=== PATIENT | female | born 1945 | race Caucasian/White ===

== ENCOUNTER 2021-03-14 23:59 | Observation (INO) | payer BC, MEDICARE ==
[2021-03-15] MEDS ORDERED: SODIUM CHLORIDE 0.9% 1,000 ML IV STA (00:12)
[2021-03-15] MEDS ORDERED: LORazepam 2 MG/ML INJ IV STA (00:20)
--- NOTE | 2021-03-15 00:24 | ED ---
Back Pain HPI - General Chief Complaint: Back Pain/Injury Stated Complaint: Back pain Time Seen by Provider: 03/15/21 00:04 Source: patient, EMS, RN notes reviewed, old records reviewed Limitations: physical limitation - History of Present Illness Initial Comments: This is a 75-year-old female to the emergency room today. Patient presents today for evaluation of severe back pain with radiation around her front. Patient has no neurological complaints no loss of bowel or bladder. No trauma noted. No fevers noted. This pain is severe and occurred after lifting a box 2 days ago MD Complaint: back pain, back injury -: days(s) Similar Symptoms Previously: Yes Place: home Radiation: none Severity: severe Severity scale (1-10): 10 Quality: burning, sharp Consistency: intermittent Improves With: none Worsens With: movement, walking Context: while lifting, turning/twisting, bending Associated Symptoms: denies other symptoms - Related Data Previous Rx's Medication Instructions Recorded Aspirin 325 mg PO DAILY PRN #5 tab 03/17/21 Famotidine [Pepcid] 40 mg PO DAILY #7 tab 03/17/21 Lidocaine 5% Patch [Lidoderm 5% 1 patch TOPICAL DAILY patch 03/17/21 Patch] amLODIPine [Norvasc] 5 mg PO DAILY #30 tab 03/17/21 tiZANidine [Zanaflex] 2 mg PO BID #60 tab 03/17/21 Allergies Allergy/AdvReac Type Severity Reaction Status Date / Time No Known Allergies Allergy Verified 03/15/21 07:33 Review of Systems ROS Statement: Those systems with pertinent positive or pertinent negative responses have been documented in the HPI. ROS Other: All systems not noted in ROS Statement are negative. Past Medical History Past Medical History: Osteoarthritis (OA) History of Any Multi-Drug Resistant Organisms: None Reported Past Surgical History: Orthopedic Surgery, Tubal Ligation Additional Past Surgical History / Comment(s): wrist Past Psychological History: No Psychological Hx Reported Smoking Status: Never smoker Past Alcohol Use History: None Reported Past Drug Use History: None Reported - Past Family History Mother Family Medical History: Cancer Brother(s) Family Medical History: Cancer Father Family Medical History: CVA/TIA General Exam Limitations: physical limitation General appearance: alert, in no apparent distress, anxious Head exam: Present: atraumatic, normocephalic, normal inspection Eye exam: Present: normal appearance, PERRL, EOMI. Absent: scleral icterus, conjunctival injection, periorbital swelling ENT exam: Present: normal exam, mucous membranes moist Neck exam: Present: normal inspection. Absent: tenderness, meningismus, lymphadenopathy Respiratory exam: Present: normal lung sounds bilaterally. Absent: respiratory distress, wheezes, rales, rhonchi, stridor Cardiovascular Exam: Present: regular rate, normal rhythm, normal heart sounds. Absent: systolic murmur, diastolic murmur, rubs, gallop, clicks GI/Abdominal exam: Present: soft, normal bowel sounds. Absent: distended, tenderness, guarding, rebound, rigid Extremities exam: Present: normal inspection, full ROM, normal capillary refill. Absent: tenderness, pedal edema, joint swelling, calf tenderness Back exam: Present: normal inspection Neurological exam: Present: alert, oriented X3, CN II-XII intact Psychiatric exam: Present: normal affect, normal mood Skin exam: Present: warm, dry, intact, normal color. Absent: rash Course Vital Signs 03/15/21 03/15/21 03/15/21 00:02 00:40 03:06 Temperature 97.7 F Pulse Rate 76 71 75 Pulse Rate [ Pulse Oximetery ] Respiratory 18 26 H 14 Rate Blood Pressure 192/94 170/90 158/89 Blood Pressure [Left Arm] O2 Sat by Pulse 100 100 96 Oximetry 03/15/21 03/15/21 03/15/21 04:37 06:00 07:00 Temperature Pulse Rate 75 79 77 Pulse Rate [ Pulse Oximetery ] Respiratory 18 18 18 Rate Blood Pressure 169/91 Blood Pressure [Left Arm] O2 Sat by Pulse 98 97 Oximetry 03/15/21 03/15/21 03/15/21 08:00 09:00 11:45 Temperature Pulse Rate 79 Pulse Rate [ Pulse Oximetery ] Respiratory 18 18 18 Rate Blood Pressure 149/83 Blood Pressure [Left Arm] O2 Sat by Pulse 96 Oximetry 03/15/21 20:30 Temperature 97.5 F L Pulse Rate Pulse Rate [ 80 Pulse Oximetery ] Respiratory 17 Rate Blood Pressure Blood Pressure 159/93 [Left Arm] O2 Sat by Pulse 97 Oximetry - Reevaluation(s) Reevaluation #1: Medical record is reviewed Patient symptoms are improved here in the emergency department Patient is informed results and questions answered Patient is in no acute distress Medical Decision Making - Medical Decision Making 75 female to the emergency department with acute on chronic back pain multiple visits for same. Patient be admitted for further evaluation management of this significant mechanical or pain back pain - Lab Data Result diagrams: 03/15/21 00:43 03/15/21 00:43 Lab Results 03/15/21 03/15/21 03/15/21 Range/Units 00:43 00:43 00:43 WBC 6.1 (3.8-10.6) k/uL RBC 4.52 (3.80-5.40) m/uL Hgb 13.8 (11.4-16.0) gm/dL Hct 41.9 (34.0-46.0) % MCV 92.7 (80.0-100.0) fL MCH 30.6 (25.0-35.0) pg MCHC 33.0 (31.0-37.0) g/dL RDW 12.5 (11.5-15.5) % Plt Count 206 (150-450) k/uL MPV 7.7 Neutrophils % 70 % Lymphocytes % 21 % Monocytes % 6 % Eosinophils % 1 % Basophils % 0 % Neutrophils # 4.3 (1.3-7.7) k/uL Lymphocytes # 1.3 (1.0-4.8) k/uL Monocytes # 0.3 (0-1.0) k/uL Eosinophils # 0.1 (0-0.7) k/uL Basophils # 0.0 (0-0.2) k/uL PT 10.1 (9.0-12.0) sec INR 0.9 (<1.2) APTT 23.6 (22.0-30.0) sec Sodium 138 (137-145) mmol/L Potassium 3.9 (3.5-5.1) mmol/L Chloride 109 H (98-107) mmol/L Carbon Dioxide 21 L (22-30) mmol/L Anion Gap 8 mmol/L BUN 26 H (7-17) mg/dL Creatinine 0.85 (0.52-1.04) mg/dL Est GFR (CKD-EPI)AfAm 78 (>60 ml/min/1.73 sqM) Est GFR (CKD-EPI)NonAf 68 (>60 ml/min/1.73 sqM) Glucose 114 H (74-99) mg/dL Plasma Lactic Acid Fredy (0.7-2.0) mmol/L Calcium 9.6 (8.4-10.2) mg/dL Phosphorus 2.5 (2.5-4.5) mg/dL Magnesium 2.0 (1.6-2.3) mg/dL Total Bilirubin 0.4 (0.2-1.3) mg/dL AST 21 (14-36) U/L ALT 15 (4-34) U/L Alkaline Phosphatase 88 (38-126) U/L Troponin I (0.000-0.034) ng/mL Total Protein 6.4 (6.3-8.2) g/dL Albumin 3.9 (3.5-5.0) g/dL 03/15/21 03/15/21 Range/Units 00:43 00:43 WBC (3.8-10.6) k/uL RBC (3.80-5.40) m/uL Hgb (11.4-16.0) gm/dL Hct (34.0-46.0) % MCV (80.0-100.0) fL MCH (25.0-35.0) pg MCHC (31.0-37.0) g/dL RDW (11.5-15.5) % Plt Count (150-450) k/uL MPV Neutrophils % % Lymphocytes % % Monocytes % % Eosinophils % % Basophils % % Neutrophils # (1.3-7.7) k/uL Lymphocytes # (1.0-4.8) k/uL Monocytes # (0-1.0) k/uL Eosinophils # (0-0.7) k/uL Basophils # (0-0.2) k/uL PT (9.0-12.0) sec INR (<1.2) APTT (22.0-30.0) sec Sodium (137-145) mmol/L Potassium (3.5-5.1) mmol/L Chloride (98-107) mmol/L Carbon Dioxide (22-30) mmol/L Anion Gap mmol/L BUN (7-17) mg/dL Creatinine (0.52-1.04) mg/dL Est GFR (CKD-EPI)AfAm (>60 ml/min/1.73 sqM) Est GFR (CKD-EPI)NonAf (>60 ml/min/1.73 sqM) Glucose (74-99) mg/dL Plasma Lactic Acid Fredy 1.2 (0.7-2.0) mmol/L Calcium (8.4-10.2) mg/dL Phosphorus (2.5-4.5) mg/dL Magnesium (1.6-2.3) mg/dL Total Bilirubin (0.2-1.3) mg/dL AST (14-36) U/L ALT (4-34) U/L Alkaline Phosphatase (38-126) U/L Troponin I <0.012 (0.000-0.034) ng/mL Total Protein (6.3-8.2) g/dL Albumin (3.5-5.0) g/dL - Radiology Data Radiology results: report reviewed (CT of the abdomen and pelvis is negative for acute disease), image reviewed Disposition Clinical Impression: Mechanical back pain, Strain of lumbar region, Sciatica, Intractable low back pain, Lumbar radiculopathy Disposition: ADMITTED IP TO THIS [facility] Condition: Fair Is patient prescribed a controlled substance at d/c from ED?: No
[2021-03-15] MEDS ORDERED: MORPHINE SULFATE 4 MG/ML SYRINGE IV ONE (00:30)
[2021-03-15 00:57] LABS: Basophils % (A) 0 %; Eosinophils # (A) 0.1 k/uL (0-0.7); Eosinophils % (A) 1 %; HCT 41.9 % (34.0-46.0); HGB 13.8 gm/dL (11.4-16.0); Lymphocytes # (A) 1.3 k/uL (1.0-4.8); Lymphocytes % (A) 21 %; MCH 30.6 pg (25.0-35.0); MCV 92.7 fL (80.0-100.0); Mean Platelet Volume 7.7; Monocytes # (A) 0.3 k/uL (0-1.0); Monocytes % (A) 6 %; Neutrophils # (A) 4.3 k/uL (1.3-7.7); Neutrophils % (A) 70 %; Platelet Count 206 k/uL (150-450); RBC 4.52 m/uL (3.80-5.40); RDW 12.5 % (11.5-15.5); WBC 6.1 k/uL (3.8-10.6)
[2021-03-15 01:10] LABS: Albumin 3.9 g/dL (3.5-5.0); Calcium 9.6 mg/dL (8.4-10.2); Phosphorus 2.5 mg/dL (2.5-4.5); Potassium 3.9 mmol/L (3.5-5.1); Total Bilirubin 0.4 mg/dL (0.2-1.3); Total Protein 6.4 g/dL (6.3-8.2)
[2021-03-15 01:15] LABS: INR 0.9 (<1.2); Partial Thromboplastin Time 23.6 sec (22.0-30.0); Prothrombin Time 10.1 sec (9.0-12.0)
--- NOTE | 2021-03-15 01:51 | CT ---
EXAMINATION TYPE: CT abdomen pelvis wo con DATE OF EXAM: 03/15/2021 COMPARISON: None HISTORY: back pain after lifting a box yesterday. no prior on PACS CT DLP: 663.9 mGycm Automated exposure control for dose reduction was used. Images obtained from the diaphragm to the floor the pelvis without contrast. There is some mild atelectasis at the lung bases. Heart is enlarged. Liver spleen stomach pancreas ap pear intact. The bile ducts are not dilated. Gallbladder appears normal. There is no adrenal mass. Kidneys show normal size and contour. There is no hydronephrosis. There is no retroperitoneal adenopathy. Bladder distends smoothly. There is no inguinal hernia. Uterus appears normal. There is no evidence of a pelvic mass. There is no free fluid in the pelvis. Lumbar vertebra have normal alignment. Posterior elements are intact. Uterus is anteverted. There is no compression fracture. There is moderately severe osteoarthritis in both hip joints. The pelvic rin g is intact. Sacroiliac joints are intact. There is no mesenteric edema. There is no ascites or free air. There is no sign of a bowel obstructio n. There is no evidence of thickened appendix. Appendix not well seen. IMPRESSION: No acute abnormality of the abdomen pelvis. Appendix not seen. No sign of thickened appendix. I do not see a cause for back pain.
[2021-03-15] MEDS ORDERED: NALOXONE 0.4 MG/ML 1 ML VIAL IV PRN (02:48)
[2021-03-15] MEDS ORDERED: MORPHINE SULFATE 4 MG/ML SYRINGE IV PRN (02:48)
[2021-03-15] MEDS ORDERED: DEXAMETHASONE SOD PHOSPHATE 10 MG/ML 1 ML VIAL IV STA (02:51)
[2021-03-15] MEDS ORDERED: KETOROLAC 15 MG/ML 1 ML VIAL IVP STA (02:51)
[2021-03-15] MEDS: SODIUM CHLORIDE 0.9% 1,000 ML IV SCH ×2 (05:00→22:33)
[2021-03-15] MEDS ORDERED: FAMOTIDINE 20 MG/2 ML VIAL IV SCH (09:00)
[2021-03-15] MEDS: amLODIPine 5 MG TAB PO SCH (09:47)
--- NOTE | 2021-03-15 09:54 | P.HPIM ---
History of Present Illness This is a pleasant 75 years old female with past medical history of severe osteoarthritis. Her left hip osteoarthritis is really bad for long time that she mainly uses a cane/worker and depend on her right side when walking. 2 days ago she felt she pulled a muscle and her pain got progressively worse yesterday especially in the left hip area, lower back and radiating to the left knee that prevents her from walking or even moving her left leg. Her pain is so severe on admission 03/27. She cannot stand up or bend her knee without getting severe pain in the area. No numbness. No perineal anesthesia. No urine or bowel in continence. No trauma or fall No chest pain or dyspnea. No GI or urinary symptoms. No headache or fever. Vitals are stable. Blood pressure slightly elevated at 169/91 Labs are reviewed and they are unremarkable including CBC, INR, BMP, liver enzymes. Troponin negative less than 0.012. Coronary is not detected. CT of the abdomen and pelvis: No acute abnormality of the abdomen and pelvis or appendix which could not be seen. Lumbar vertebra have normal alignment. Posterior elements are intact. There is no compression fraction. There is moderate severe osteoarthritis in both hip joints pelvic ring is intact. The sacroiliac joints are intact In the emergency room patient was started on dexamethasone, Toradol and Ativan and morphine and started on normal saline at 1:30 milliliters per hour sounds besides consulting orthopedic service Review of Systems CONSTITUTIONAL: No fever, no malaise, no fatigue. HEENT: No recent visual problems or hearing problems. Denied any sore throat. CARDIOVASCULAR: No orthopnea, PND, no palpitations, no syncope. PULMONARY: No shortness of breath, no cough, no hemoptysis. GASTROINTESTINAL: No diarrhea, no nausea, no vomiting, no abdominal pain. Normoactive bowel sounds. NEUROLOGICAL: No headaches, no weakness, no numbness. HEMATOLOGICAL: Denies any bleeding or petechiae. GENITOURINARY: Denies any burning micturition, frequency, or urgency. MUSCULOSKELETAL/RHEUMATOLOGICAL: Denies any joint pain, swelling, or any muscle pain. ENDOCRINE: Denies any polyuria or polydipsia. Past Medical History Past Medical History: Osteoarthritis (OA) History of Any Multi-Drug Resistant Organisms: None Reported Past Surgical History: Orthopedic Surgery, Tubal Ligation Additional Past Surgical History / Comment(s): wrist Past Psychological History: No Psychological Hx Reported Smoking Status: Never smoker Past Alcohol Use History: None Reported Past Drug Use History: None Reported Medications and Allergies Home Medications Medication Instructions Recorded Confirmed Type Aspirin EC [Ecotrin] 325 mg PO QID PRN 03/15/21 03/15/21 History Allergies Allergy/AdvReac Type Severity Reaction Status Date / Time No Known Allergies Allergy Verified 03/15/21 07:33 Physical Exam Vitals: Vital Signs Temp Pulse Resp BP Pulse Ox 03/15/21 07:00 77 18 169/91 97 03/15/21 06:00 79 18 98 03/15/21 04:37 75 18 03/15/21 03:06 75 14 158/89 96 03/15/21 00:40 71 26 H 170/90 100 03/15/21 00:02 97.7 F 76 18 192/94 100 Intake and Output 03/14/21 03/15/21 03/15/21 22:59 06:59 14:59 Other: Weight 83.007 kg GENERAL: The patient is alert and oriented x3, not in any acute distress. Well developed, well nourished. HEENT: Pupils are round and equally reacting to light. EOMI. No scleral icterus. No conjunctival pallor. Normocephalic, atraumatic. No pharyngeal erythema. No thyromegaly. CARDIOVASCULAR: S1 and S2 present. No murmurs, rubs, or gallops. PULMONARY: Chest is clear to auscultation, no wheezing or crackles. ABDOMEN: Soft, nontender, nondistended, normoactive bowel sounds. No palpable organomegaly. -MUSCULOSKELETAL: No joint swelling or deformity. No lower back or left hip tenderness but movement of her left leg is severely restricted because of pain in her left hip area. Patient could not bend her knee because of severe pain EXTREMITIES: No cyanosis, clubbing, or pedal edema. NEUROLOGICAL: Gross neurological examination did not reveal any focal deficits. SKIN: No rashes. No petechiae Results CBC & Chem 7: 03/15/21 00:43 03/15/21 00:43 Labs: Abnormal Lab Results - Last 24 Hours (Table) 03/15/21 Range/Units 00:43 Chloride 109 H (98-107) mmol/L Carbon Dioxide 21 L (22-30) mmol/L BUN 26 H (7-17) mg/dL Glucose 114 H (74-99) mg/dL Assessment and Plan Assessment: Severe osteoarthritis especially of both hip areas Severe left hip pain radiating to the lower back and left knee secondary to above Plan: This is a pleasant 75 years old female who presents with acute back pain Continue with pain management. Patient currently is on morphine 4 mg and Toradol. Add Dilaudid when necessary Orthopedic consult start [facility] Labs and medication were reviewed.. Continue same treatment. Continue with symptomatic treatment. Resume home medication. Monitor lytes and vitals. DVT and GI prophylaxis. Further recommendations depends on the clinical course of the patient DVT prophylaxis: Subcutaneous heparin GI Prophylaxis: Pepcid PT/OT: Pending
[2021-03-15] MEDS: HYDROmorphone 1 MG/ML 1 ML SYRINGE IVP PRN ×2 (09:56→17:40)
--- NOTE | 2021-03-15 10:48 | XR ---
EXAMINATION TYPE: XR lumbar spine with bend/flex (5 views including flexion and extension) DATE OF EXAM: 03/15/2021 Comparison: None Clinical History: 75-year-old female with lower back pain Findings: 5 lumbar type vertebral bodies. Mild multilevel degenerative disc disease with mild endplate spondylo sis and mild disc space narrowing. Advanced hypertrophic facet arthropathy mid to lower lumbar spine. There is a degenerative grade 1 anterolisthesis at L4-L5 that does not change on flexion or extensio n. Vertebral body heights are preserved. Impression: 1. Advanced hypertrophic facet arthropathy mid to lower lumbar spine with a fixed grade 1 anterolisth esis at L4-L5. No evidence for dynamic subluxation on flexion-extension views. 2. Mild multilevel degenerative disc disease.
[2021-03-15] MEDS: KETOROLAC 15 MG/ML 1 ML VIAL IVP SCH ×3 (11:40→22:46)
[2021-03-15] MEDS: ONDANSETRON 4 MG/2 ML VIAL IVP PRN ×2 (11:40→17:39)
--- NOTE | 2021-03-15 18:04 | P.CNOR ---
History of Present Illness - [facility] Consult date: 03/15/21 Requesting physician: Earl Nettles Consult reason: back pain History of present illness: Patient seen in the ER this morning. Patient was lying right lateral recumbent position in bed. Patient states she is having low back pain over the past 2 days. Patient says she was moving some boxes around her home. She says she woke up next morning with severe pain in her lower back radiating down her left leg in the anterior thigh and anterior knee region. Patient says the pain is exacerbated when she moves from a seated position to standing position. Patient says the pain eases up while resting and not moving. Patient rates the pain is 10/10, however during the encounter patient was not much pain due to being given Dilaudid. Patient denies any previous orthopedic surgical history. Patient denies any trauma/falls recently. Patient denies chest pain, fever, shortness breath, nausea, vomiting, change in vision, loss of bowel/bladder control. Patient denies saddle anesthesia. Past Medical History Past Medical History: Osteoarthritis (OA) History of Any Multi-Drug Resistant Organisms: None Reported Past Surgical History: Orthopedic Surgery, Tubal Ligation Additional Past Surgical History / Comment(s): wrist Past Psychological History: No Psychological Hx Reported Smoking Status: Never smoker Past Alcohol Use History: None Reported Past Drug Use History: None Reported Medications and Allergies Home Medications Medication Instructions Recorded Confirmed Type Aspirin EC [Ecotrin] 325 mg PO QID PRN 03/15/21 03/15/21 History Allergies Allergy/AdvReac Type Severity Reaction Status Date / Time No Known Allergies Allergy Verified 03/15/21 07:33 Physical Examination Inspection: Inspection spine there is no evident areas of ecchymosis, erythema, nodules, scoliosis Palpation: Some mild TTP along the midline in the lumbar spine region. NTTP throughout rest exam Sensation: Sensation is equal, symmetric, intact throughout bilaterally Range of motion: Patient has full range of motion bilateral upper extremities in elbow flexion/extension, shoulder abduction internal/external rotation and wrist flexion/extension. Patient has full range of motion in right lower leg and hip flexion extension and knee flexion/extension as well as plantarflexion/dorsi flexion. Range of motion is limited in left lower leg and hip flexion. Full range of motion and knee flexion/extension. Plantar flexion/dorsiflexion. Motor: Bilateral upper shortness 5/5 in resisted elbow extension/flexion shoulder internal/external rotation abduction. Right lower leg 5/5 resisted hip flexion/extension and knee flexion/extension as well as plantarflexion and dorsiflexion. Left lower extremity 5/5 resisted knee flexion/extension. Hip flexion 4/5. Neurovascular: cap Refill under 3 seconds bilateral lower extremities. DP pulses intact, 2+. Special tests: Negative Jet's bilaterally; negative Homans bilaterally; negative clonus bilaterally. Results - Labs Labs: Abnormal Lab Results - Last 24 Hours (Table) 03/15/21 Range/Units 00:43 Chloride 109 H (98-107) mmol/L Carbon Dioxide 21 L (22-30) mmol/L BUN 26 H (7-17) mg/dL Glucose 114 H (74-99) mg/dL H & H 03/15/21 Range/Units 00:43 Hgb 13.8 (11.4-16.0) gm/dL Hct 41.9 (34.0-46.0) % Coagulation 03/15/21 Range/Units 00:43 INR 0.9 (<1.2) Result Diagrams: 03/15/21 00:43 03/15/21 00:43 Assessment and Plan Assessment: 1. Low back pain 2. Left lower extremity radiculopathy 3. L4 to L5 anterolisthesis, grade 1 4. DDD Plan: 1. Low back pain; left lower extremity radiculopathy; L4-L5 grade 1 rosemary listhesis; DDD - patient treated with oral and IV pain medication in the ER. I did discuss with patient findings of the lumbar x-rays. I also did discuss findings with my attending. At this time we do not recommend any urgent orthopedic surgical intervention. We do recommend pain control with oral pain medications and to follow-up with us in the outpatient setting. We'll continue follow patient while in hospital. 2. Appreciate medical management 3. Appreciate consult 4. Pain management - oral pain medications 5. GI prophylaxis/DVT ppx - pepcid; heparin 6. PT/OT - weightbearing as tolerated with walker for assistance Time with Patient: Less than 30
[2021-03-15] MEDS: FAMOTIDINE 20 MG TAB PO SCH (22:33)
[2021-03-15] MEDS: HEPARIN SODIUM,PORCINE/PF 5,000 UNIT/0.5 ML SYRINGE SQ SCH (22:35)
[2021-03-15] MEDS: METOCLOPRAMIDE 5 MG/ML 2 ML VIAL IVP PRN (22:46)
[2021-03-16] MEDS: ONDANSETRON 4 MG/2 ML VIAL IVP PRN (04:36)
[2021-03-16] MEDS: HYDROmorphone 1 MG/ML 1 ML SYRINGE IVP PRN ×2 (04:38→19:53)
[2021-03-16] MEDS: SODIUM CHLORIDE 0.9% 1,000 ML IV SCH ×2 (04:44→11:44)
[2021-03-16] MEDS: KETOROLAC 15 MG/ML 1 ML VIAL IVP SCH ×3 (05:07→17:36)
[2021-03-16] MEDS: amLODIPine 5 MG TAB PO SCH (07:32)
[2021-03-16] MEDS: FAMOTIDINE 20 MG TAB PO SCH ×2 (07:32→21:19)
[2021-03-16] MEDS: HEPARIN SODIUM,PORCINE/PF 5,000 UNIT/0.5 ML SYRINGE SQ SCH ×2 (07:32→21:19)
[2021-03-16] MEDS: METOCLOPRAMIDE 5 MG/ML 2 ML VIAL IVP PRN (07:32)
--- NOTE | 2021-03-16 08:51 | P.PN ---
Subjective Progress Note Date: 03/16/21 Principal diagnosis: low back pain; left lower extremity radiculopathy; L4-L5 grade 1 anterolisthesis Patient was seen at bedside this morning. Patient got up and walked around the room with cane. Patient says her pain is under better control this morning. Patient says she still having some left lower back pain. She says right now she is not having any radiation of pain down her left leg. Patient is concerned when she leaves the hospital, when she gets home how she will be able to control her pain. Patient denies chest pain, fever, shortness breath, nausea, vomiting, change in vision, loss of bowel/bladder control. Patient denies saddle anesthesia. Objective - Vital Signs Vital signs: Vital Signs Temp 97.7 F 03/16/21 07:43 Pulse 71 03/16/21 07:43 Resp 14 03/16/21 07:43 BP 149/77 03/16/21 07:43 Pulse Ox 98 03/16/21 07:43 Intake & Output 03/15/21 03/16/21 03/16/21 18:59 06:59 18:59 Weight 83.007 kg Other: # Voids 3 - Exam Inspection: Inspection spine there is no evident areas of ecchymosis, erythema, nodules, scoliosis Palpation: Some mild TTP along the midline in the lumbar spine region. NTTP throughout rest exam Sensation: Sensation is equal, symmetric, intact throughout bilaterally Range of motion: Patient has full range of motion bilateral upper extremities in elbow flexion/extension, shoulder abduction internal/external rotation and wrist flexion/extension. Patient has full range of motion in right lower leg and hip flexion extension and knee flexion/extension as well as plantarflexion/dorsi f lexion. Range of motion is limited in left lower leg and hip flexion. Full range of motion and knee flexion/extension. Plantar flexion/dorsiflexion. Motor: Bilateral upper shortness 5/5 in resisted elbow extension/flexion shoulder internal/external rotation abduction. Right lower leg 5/5 resisted hip flexion/extension and knee flexion/extension as well as plantarflexion and dorsiflexion. Left lower extremity 5/5 resisted knee flexion/extension. Hip flexion 4/5. Neurovascular: cap Refill under 3 seconds bilateral lower extremities. DP pulses intact, 2+. Special tests: Negative Jet's bilaterally; negative Homans bilaterally; negative clonus bilaterally. - Labs CBC & Chem 7: 03/15/21 00:43 03/15/21 00:43 Assessment and Plan Assessment: 1. Low back pain 2. Left lower extremity radiculopathy 3. L4 to L5 anterolisthesis, grade 1 4. DDD Plan: 1. Low back pain; left lower extremity radiculopathy; L4-L5 grade 1 anterolisthesis; DDD - patient treated with oral and IV pain medication in the ER. I did discuss with patient findings of the lumbar x-rays. I also did discuss findings with my attending. At this time we do not recommend any urgent orthopedic surgical intervention. We do recommend pain control with oral pain medications and to follow-up with us in the outpatient setting. Per the orthopedic standpoint, patient is stable for discharge. Please do not hesitate to contact us for any further questions 2. Appreciate medical management 3. Appreciate consult 4. Pain management - oral pain medications 5. GI prophylaxis/DVT ppx - pepcid; heparin 6. PT/OT - weightbearing as tolerated with walker for assistance Time with Patient: Less than 30
[2021-03-16] MEDS: tiZANidine 4 MG TAB PO SCH (21:20)
[2021-03-16] MEDS ORDERED: ASPIRIN 325 MG TAB PO PRN (22:22)
[2021-03-16] MEDS ORDERED: HYDROcodone/APAP 5-325MG 1 EACH TAB PO PRN (22:22)
[2021-03-17] MEDS: SODIUM CHLORIDE 0.9% 1,000 ML IV SCH (01:05)
[2021-03-17] MEDS: KETOROLAC 15 MG/ML 1 ML VIAL IVP SCH ×2 (01:05→05:40)
[2021-03-17] MEDS: tiZANidine 4 MG TAB PO SCH (07:45)
[2021-03-17] MEDS: amLODIPine 5 MG TAB PO SCH (07:45)
[2021-03-17] MEDS: HEPARIN SODIUM,PORCINE/PF 5,000 UNIT/0.5 ML SYRINGE SQ SCH (07:45)
[2021-03-17] MEDS: FAMOTIDINE 20 MG TAB PO SCH (07:45)
[2021-03-17 08:12] VITALS: RESP 16; TEMP 97.6
[2021-03-17] MEDS ORDERED: LIDOCAINE 5% PATCH TOPICAL SCH (09:00)
[2021-03-17 11:01] VITALS: BP 107/56; PULSE 61
--- NOTE | 2021-03-17 21:07 | P.PAINCN ---
History of Present Illness - Reason for Consult Consult date: 03/17/21 - Chief Complaint lumbar back pain - History of Present Illness Ms. Arora is a 75-year-old pleasant female came to the [facility] secondary to uncontrolled back pain started 2 days ago after lifting heavy boxes around the home to move. She tried not to come to the hospital but her pain was not controlled. she is using his cane for walking support. She denied any weakness/numbness in her lower extremity at this time.. Patient denied any bowel or bladder problems. Patient denied any fever, denied any recent weight loss, and night sweats things. Her imaging demonstrated mild spondylosis at L4-L5 with spondylolisthesis grade 1. No acute fractures or dislocations or malalignments. She rated her pain is 3-4 out of 10 in severity. Her pain increases with activities. Decreases with oral pain medications to some extent. Lately because of her uncontrolled pain she has poor quality of life. Sometimes she has difficulty falling to sleep secondary to uncontrolled pain. patient denied any side effects of the medication. Patient denied any suicidal tendency/homicidal tendency at this time. Review of Systems Constitutional: Denies chills, Denies fever Cardiovascular: Denies chest pain, Denies shortness of breath Respiratory: Denies cough Gastrointestinal: Denies abdominal pain, Denies diarrhea, Denies nausea, Denies vomiting Musculoskeletal: Reports muscle cramps, Reports myalgias Neurological: Reports weakness, Denies numbness Psychiatric: Reports anxiety, Reports depression Endocrine: Denies fatigue, Denies weight change Allergic/Immunologic: Denies as per HPI, Denies allergic rhinitis, Denies anaphylaxis, Denies angioedema, Denies gluten intolerance, Denies persistent infections, Denies seasonal allergies, Denies urticaria, Denies wheezing Past Medical History Past Medical History: Osteoarthritis (OA) History of Any Multi-Drug Resistant Organisms: None Reported Past Surgical History: Orthopedic Surgery, Tubal Ligation Additional Past Surgical History / Comment(s): wrist Past Anesthesia/Blood Transfusion Reactions: No Reported Reaction Past Psychological History: No Psychological Hx Reported Smoking Status: Never smoker Past Alcohol Use History: None Reported Past Drug Use History: None Reported - Past Family History Mother Family Medical History: Cancer Brother(s) Family Medical History: Cancer Father Family Medical History: CVA/TIA Medications and Allergies Home Medications Medication Instructions Recorded Confirmed Type Aspirin 325 mg PO DAILY PRN #5 tab 03/17/21 Rx Famotidine [Pepcid] 40 mg PO DAILY #7 tab 03/17/21 Rx Lidocaine 5% Patch [Lidoderm 5% 1 patch TOPICAL DAILY patch 03/17/21 Rx Patch] amLODIPine [Norvasc] 5 mg PO DAILY #30 tab 03/17/21 Rx tiZANidine [Zanaflex] 2 mg PO BID #60 tab 03/17/21 Rx Allergies Allergy/AdvReac Type Severity Reaction Status Date / Time No Known Allergies Allergy Verified 03/15/21 07:33 Physical Exam Vitals: Vital Signs Temp Pulse Resp BP Pulse Ox 03/17/21 10:25 61 107/56 03/17/21 08:00 77 16 03/17/21 07:00 97.6 F 77 16 170/80 94 L 03/17/21 01:03 98.1 F 66 20 144/72 97 Intake and Output 03/17/21 03/17/21 03/17/21 06:59 14:59 22:59 Other: Voiding Method Toilet Toilet # Voids 2 General: Well-developed, well-nourished, no acute distress HEENT: Normocephalic, and atraumatic Neck: Supple, no neck swelling Psychiatric: Appropriate mood, and affect LAYER OUT: No focal neurological deficits Musculoskeletal: Upper extremity: Normal strength, and range of motion. Sensation grossly intact Lower extremity: Normal strength, and decreased range of motion secondary to pain Lumbar spine: Paravertebral tenderness: positive Lumbar facet load test : positive Sacroiliac joint tenderness: negative tenderness over the lumbar spine area, and paraspinal muscle Results CBC & Chem 7: 03/15/21 00:43 03/15/21 00:43 Comments: x-ray of the lumbar spine results reviewed Assessment and Plan Assessment: acute on chronic lumbar back pain Myofascial pain syndrome Lumbar spondylosis without myelopathy spondylolisthesisgrade 1 -L4 on L5 chronic pain syndrome Plan: patient was thoroughly discussed regarding the medication, interventional procedures, and alternatives. Patient understood and answer all the questions. patient encouraged to do regular exercise including sonny chi exercises which may help some in controlling her pain, and balance.. Medications: Continue with the current pain medication as patient is expressing that current medications are helping In the hospital setting. Plan to continue her narcotic pain medication at the time of dischargeas needed basis. interventional procedure: Discussed with the patient regarding trigger points over lumbar area. Patient was explained regarding the procedure, complications, alternatives discussed with the patient. patient can follow up as an outpatient if needed any interventional procedures if her pain is not well controlled with conservative therapy. Thank you for consulting anesthesia pain services. Please feel free to contact if you have any questions regarding patient care management. Patient can follow up with outpatient pain clinic as needed in future for any intervention procedures. PQRS Measure Charge Sheet Pain Comment: see MAR PQRS Narrative: Do You Want the Pneumonia Yes Vaccine AT THIS TIME? Blood Pressure [Left Arm] 107/56 Blood Pressure 154/79 Pain Intensity [Back] 0 Pain Intensity 4 Pain Scale Used Numeric (1 - 10) Scale Used Numeric (1 - 10) Home Medications: Ambulatory Orders Aspirin 325 mg PO DAILY PRN #5 tab 03/17/21 Famotidine [Pepcid] 40 mg PO DAILY #7 tab 03/17/21 Lidocaine 5% Patch [Lidoderm 5% Patch] 1 patch TOPICAL DAILY patch 03/17/21 amLODIPine [Norvasc] 5 mg PO DAILY #30 tab 03/17/21 tiZANidine [Zanaflex] 2 mg PO BID #60 tab 03/17/21
== END 2021-03-17 11:40 | disposition home or self-care (01) ==
LOC: EC 23:59 → 6NMEDSUR 03-15 02:48
PROVIDERS: ADMIT Hospitalist; ATTEND Hospitalist
DX: M54.16 Radiculopathy, lumbar region (principal); M16.0 Bilateral primary osteoarthritis of hip; M43.16 Spondylolisthesis, lumbar region; M47.816 Spondylosis without myelopathy or radiculopathy, lumbar region; G89.4 Chronic pain syndrome; S39.012A Strain of muscle, fascia and tendon of lower back, initial encounter; M79.18 Myalgia, other site; R11.0 Nausea; R42 Dizziness and giddiness; X50.0XXA Overexertion from strenuous movement or load, initial encounter; Z20.822 Contact with and (suspected) exposure to COVID-19; Z80.9 Family history of malignant neoplasm, unspecified; Z82.3 Family history of stroke
CPT/HCPCS: 96376 ×4; 96361 ×4; 96372 ×3; 96375 ×2; 96374; 99285; 36415; 97162; 97530; 97166; 80053; 83605; 83735; 84100; 84484; 85025; 85610; 85730; 87635; 72114; 74176; G0378 ×3; J2060; J2270; J1100; J2765 ×2; J2405 ×2; J1170 ×2; J1885 ×3; J1644 ×3

== ENCOUNTER 2024-09-25 15:46 | Emergency (ER) | payer MEDICARE ==
--- NOTE | 2024-09-25 16:21 | ED ---
Dizziness HPI - General Source: patient Mode of arrival: wheelchair Limitations: no limitations <Brenda Mansfield - Last Filed: 09/25/24 16:21> <Alvarez Du - Last Filed: 09/25/24 20:29> <Juan RamontrinaDaniele - Last Filed: 09/25/24 22:09> - General Chief Complaint: Dizziness Stated Complaint: dizziness Time Seen by Provider: 09/25/24 16:21 - History of Present Illness Initial Comments: 79-year-old female presenting with chief complaint of dizziness. Patient states that it started earlier when she woke up today. She reports that she has had episodes like this in the past but they only lasted for a few moments and promptly stopped. She states that this has been ongoing all day. She admits to nausea and vomiting. No headache. No chest pain or difficulty breathing. (Brenda Mansfield) Dictation was produced using [employer] dictation software. please excuse any grammatical, word or spelling errors. Chief Complaint: 79-year-old female presents with dizziness History of Present Illness: Patient 79-year-old female presents emergency department with dizziness. She has had dizzy symptoms in the past so not as severe and persistent. States that symptoms feel like the room is spinning. She states that she is having difficulty ambulating. States that when she rests her symptoms improved dramatically. Her symptoms are exacerbated with head movement. Denies any history of stroke. Denies any extremity weakness or paresthesias. Patient denies any symptoms at rest The ROS documented in this emergency department record has been reviewed and confirmed by me. Those systems with pertinent positive or negative responses have been documented in the HPI. All other systems are other negative and/or noncontributory. (Alvarez Du) - Related Data Previous Rx's Medication Instructions Recorded Aspirin 325 mg PO DAILY PRN #5 tab 03/17/21 Famotidine [Pepcid] 40 mg PO DAILY #7 tab 03/17/21 Lidocaine 5% Patch [Lidoderm 5% 1 patch TOPICAL DAILY patch 03/17/21 Patch] amLODIPine [Norvasc] 5 mg PO DAILY #30 tab 03/17/21 tiZANidine [Zanaflex] 2 mg PO BID #60 tab 03/17/21 Meclizine [Antivert] 25 mg PO TID PRN #15 tab 09/25/24 Allergies Allergy/AdvReac Type Severity Reaction Status Date / Time No Known Allergies Allergy Verified 09/25/24 16:03 Review of Systems ROS Other: All systems not noted in ROS Statement are negative. <Brenda Mansfield - Last Filed: 09/25/24 16:21> ROS Other: All systems not noted in ROS Statement are negative. <Alvarez Du - Last Filed: 09/25/24 20:29> ROS Other: All systems not noted in ROS Statement are negative. <Daniele Valenzuela - Last Filed: 09/25/24 22:09> ROS Statement: Those systems with pertinent positive or pertinent negative responses have been documented in the HPI. Past Medical History Past Medical History: Osteoarthritis (OA) Additional Past Medical History / Comment(s): hard of hearing, History of Any Multi-Drug Resistant Organisms: None Reported Past Surgical History: Orthopedic Surgery, Tubal Ligation Additional Past Surgical History / Comment(s): wrist Past Anesthesia/Blood Transfusion Reactions: No Reported Reaction Past Psychological History: No Psychological Hx Reported Smoking Status: Never smoker Past Alcohol Use History: None Reported Past Drug Use History: None Reported - Past Family History Mother Family Medical History: Cancer Brother(s) Family Medical History: Cancer Father Family Medical History: CVA/TIA <Brenda Mansfield - Last Filed: 09/25/24 16:21> General Exam Limitations: no limitations <Brenda Mansfield - Last Filed: 09/25/24 16:21> <Alvarez Du - Last Filed: 09/25/24 20:29> - General Exam Comments Initial Comments: Visual Physical Exam Vital signs reviewed General: Well-appearing, nontoxic, no acute distress. Head: Normocephalic, atraumatic Eyes: PERRLA, EOMI ENT: Airway patent Chest: Nonlabored breathing Skin: No visual rash, normal skin tone Neuro: Alert and oriented 3 Musculoskeletal: No gross abnormalities (Brenda Mansfield) PHYSICAL EXAM: General Impression: Alert and oriented x3, not in acute distress HEENT: Normocephalic atraumatic, extra-ocular movements intact, pupils equal and reactive to light bilaterally, mucous membranes moist. Cardiovascular: Heart regular rate and rhythm Chest: Able to complete full sentences, no retractions, no tachypnea Abdomen: abdomen soft, non-tender, non-distended, no organomegaly Musculoskeletal: Pulses present and equal in all extremities, no peripheral edema Motor: no focal deficits noted Neurological: CN II-XII grossly intact, no focal motor or sensory deficits noted, mild left beating nystagmus with fast phase to the left, no rotatory nystagmus or vertical nystagmus. Skin: Intact with no visualized rashes Psych: Normal affect and mood (Alvarez Du) Course Vital Signs 09/25/24 09/25/24 09/25/24 15:56 18:59 20:01 Temperature 98.2 F 98.2 F Pulse Rate 84 73 72 Respiratory 17 18 20 Rate Blood Pressure 169/84 174/82 161/82 O2 Sat by Pulse 96 100 100 Oximetry EKG Findings - EKG Comments: EKG Findings:: My EKG interpretation: Ventricular rate 77, sinus rhythm, CO 158, QRS 90, QTc 3 2. No CO prolongation, no QTC prolongation, no ST or T-wave changes noted. Overall, this EKG is unremarkable <Alvarez Du - Last Filed: 09/25/24 20:29> Medical Decision Making <Brenda Mansfield - Last Filed: 09/25/24 16:21> - Lab Data Result diagrams: 09/25/24 17:55 09/25/24 17:55 <Alvarez Du - Last Filed: 09/25/24 20:29> - Lab Data Result diagrams: 09/25/24 17:55 09/25/24 17:55 <Daniele Valenzuela - Last Filed: 09/25/24 22:09> - Medical Decision Making I performed the quick note portion of this visit, electronically signed Brenda Mansfield PA-C (Brenda Mansfield) Was pt. sent in by a medical professional or institution (LINDSEY Mcghee, GENERAL LEDGER ACCOUNTANT, urgent care, hospital, or shelter...) When possible be specific @ -No Did you speak to anyone other than the patient for history (EMS, parent, family, police, friend...)? What history was obtained from this source @ -No Did you review nursing and triage notes (agree or disagree)? Why? @ -I reviewed and agree with nursing and triage notes Were old charts reviewed (outside hosp., previous admission, EMS record, old EK G, old radiological studies, urgent care reports/EKG's, shelter records)? Report findings @ -No old charts were reviewed Differential Diagnosis (chest pain, altered mental status, abdominal pain women, abdominal pain men, vaginal bleeding, musculoskeletal, weakness, fever, dyspnea, syncope, headache, dizziness, GI bleed, back pain, seizure, CVA, palpatations, mental health)? @ -Differential Dizziness: Benign paroxysmal positional Vertigo, Meniere's disease, otitis media, acoustic neuroma, vertebrobasilar insufficiency, cerebellar stroke, encephalitis, hypovolemic, arrhythmia, coronary artery syndrome, anemia, this is not meant to be an all-inclusive list EKG interpreted by me (3pts min.). @ -None done X-rays interpreted by me (1pt min.). @ -None done CT interpreted by me (1pt min.). @ -CT brain shows no acute processes U/S interpreted by me (1pt. min.). @ -None done What testing was considered but not performed or refused? (CT, X-rays, U/S, labs)? Why? @ -None What meds were considered but not given or refused? Why? @ -None Was smoking cessation discussed for >3mins.? @ -No Were there social determinants of health that impacted care today? How? (Homelessness, low income, unemployed, alcoholism, drug addiction, transportation, low edu. Level, literacy, decrease access to med. care, fci, rehab)? @ -No Was there de-escalation of care discussed even if they declined (Discuss DNR or withdrawal of care, Hospice)? DNR status @ -No What co-morbidities impacted this encounter? (DM, HTN, Smoking, COPD, CAD, Cancer, CVA, ARF, Chemo, Hep., AIDS, mental health diagnosis, sleep apnea, morbid obesity)? @ -None Was patient admitted / discharged? Hospital course, mention meds given and route, prescriptions, significant lab abnormalities, going to OR and other pertinent info. @ -79-year-old female presents emergency department with clinical presentation consistent with benign paroxysmal positional vertigo. Vital signs are stable. Physical examination is unremarkable. No high risk features. CT brain is negative. Labs are unremarkable. Patient given symptomatic medications Did you discuss the management of the patient with other professionals (professionals i.e. , PA, GENERAL LEDGER ACCOUNTANT, lab, RT, psych nurse, insole department worker, crate liner, teacher, sports development officer, case making machine operator)? Give summary @ -No Was critical care preformed (if so, how long)? @ -No Undiagnosed new problem with uncertain prognosis? @ -No Drug Therapy requiring intensive monitoring for toxicity (Heparin, Nitro, Insulin, Cardizem)? @ -No Were any procedures done? @ -No Diagnosis/symptom? Acute, or Chronic, or Acute on Chronic? Uncomplicated (without systemic symptoms) or Complicated (systemic symptoms)? @ -BPPV Side effects of treatment? @ -No Exacerbation, Progression, or Severe Exacerbation? @ -No Poses a threat to life or bodily function? How? (Chest pain, [place], [place], pneumonia, PE, COPD, DKA, ARF, appy, cholecystitis, CVA, Diverticulitis, Homicidal, Suicidal, threat to staff... and all critical care pts) @ -No (Alvarez Du) - Lab Data Lab Results 09/25/24 09/25/24 09/25/24 Range/Units 17:55 17:55 17:55 WBC 5.61 (4.50-10.00) 10*3/uL RBC 5.05 (4.10-5.20) 10*6/uL Hgb 15.8 H (12.0-15.0) g/dL Hct 45.6 (37.2-46.3) % MCV 90.3 (80.0-97.0) fL MCH 31.3 (27.0-32.0) pg MCHC 34.6 (32.0-37.0) g/dL Plt Count 246 (140-440) 10*3/uL MPV 9.7 (9.5-12.2) fL Immature Gran % (Auto) 0.5 % Neutrophils % 79.3 % Lymphocytes % 15.7 % Monocytes % 4.1 % Eosinophils % 0.0 % Basophils % 0.4 % Immature Gran # 0.03 (0.00-0.04) 10*3/uL Neutrophils # 4.45 (1.80-7.70) 10*3/uL Lymphocytes # 0.88 L (0.90-5.00) 10*3/uL Monocytes # 0.23 (0.20-1.00) 10*3/uL Eosinophils # 0.00 L (0.04-0.35) 10*3/uL Basophils # 0.02 (0.00-0.10) 10*3/uL PT 10.7 (10.0-12.5) sec INR 1.0 (<1.2) Sodium 138 (137-145) mmol/L Potassium 3.9 (3.5-5.1) mmol/L Chloride 105 (98-107) mmol/L Carbon Dioxide 23 (22-30) mmol/L Anion Gap 10 mmol/L BUN 16 (7-17) mg/dL Creatinine 0.64 (0.52-1.04) mg/dL Est GFR (CKD-EPI)AfAm >90 (>60 ml/min/1.73 sqM) Est GFR (CKD-EPI)NonAf 86 (>60 ml/min/1.73 sqM) Glucose 131 H (74-99) mg/dL Lactic Ac Sepsis Rflx Plasma Lactic Acid Fredy (0.7-2.0) mmol/L Calcium 10.6 H (8.4-10.2) mg/dL Total Bilirubin 0.8 (0.2-1.3) mg/dL AST 26 (14-36) U/L ALT 23 (4-34) U/L Alkaline Phosphatase 73 (38-126) U/L Troponin I (0.000-0.034) ng/mL Total Protein 7.5 (6.3-8.2) g/dL Albumin 4.6 (3.5-5.0) g/dL 09/25/24 09/25/24 09/25/24 Range/Units 17:55 17:55 18:22 WBC (4.50-10.00) 10*3/uL RBC (4.10-5.20) 10*6/uL Hgb (12.0-15.0) g/dL Hct (37.2-46.3) % MCV (80.0-97.0) fL MCH (27.0-32.0) pg MCHC (32.0-37.0) g/dL Plt Count (140-440) 10*3/uL MPV (9.5-12.2) fL Immature Gran % (Auto) % Neutrophils % % Lymphocytes % % Monocytes % % Eosinophils % % Basophils % % Immature Gran # (0.00-0.04) 10*3/uL Neutrophils # (1.80-7.70) 10*3/uL Lymphocytes # (0.90-5.00) 10*3/uL Monocytes # (0.20-1.00) 10*3/uL Eosinophils # (0.04-0.35) 10*3/uL Basophils # (0.00-0.10) 10*3/uL PT (10.0-12.5) sec INR (<1.2) Sodium (137-145) mmol/L Potassium (3.5-5.1) mmol/L Chloride (98-107) mmol/L Carbon Dioxide (22-30) mmol/L Anion Gap mmol/L BUN (7-17) mg/dL Creatinine (0.52-1.04) mg/dL Est GFR (CKD-EPI)AfAm (>60 ml/min/1.73 sqM) Est GFR (CKD-EPI)NonAf (>60 ml/min/1.73 sqM) Glucose (74-99) mg/dL Lactic Ac Sepsis Rflx Y Plasma Lactic Acid Fredy 2.3 H* (0.7-2.0) mmol/L Calcium (8.4-10.2) mg/dL Total Bilirubin (0.2-1.3) mg/dL AST (14-36) U/L ALT (4-34) U/L Alkaline Phosphatase (38-126) U/L Troponin I 0.029 (0.000-0.034) ng/mL Total Protein (6.3-8.2) g/dL Albumin (3.5-5.0) g/dL 09/25/24 Range/Units 20:49 WBC (4.50-10.00) 10*3/uL RBC (4.10-5.20) 10*6/uL Hgb (12.0-15.0) g/dL Hct (37.2-46.3) % MCV (80.0-97.0) fL MCH (27.0-32.0) pg MCHC (32.0-37.0) g/dL Plt Count (140-440) 10*3/uL MPV (9.5-12.2) fL Immature Gran % (Auto) % Neutrophils % % Lymphocytes % % Monocytes % % Eosinophils % % Basophils % % Immature Gran # (0.00-0.04) 10*3/uL Neutrophils # (1.80-7.70) 10*3/uL Lymphocytes # (0.90-5.00) 10*3/uL Monocytes # (0.20-1.00) 10*3/uL Eosinophils # (0.04-0.35) 10*3/uL Basophils # (0.00-0.10) 10*3/uL PT (10.0-12.5) sec INR (<1.2) Sodium (137-145) mmol/L Potassium (3.5-5.1) mmol/L Chloride (98-107) mmol/L Carbon Dioxide (22-30) mmol/L Anion Gap mmol/L BUN (7-17) mg/dL Creatinine (0.52-1.04) mg/dL Est GFR (CKD-EPI)AfAm (>60 ml/min/1.73 sqM) Est GFR (CKD-EPI)NonAf (>60 ml/min/1.73 sqM) Glucose (74-99) mg/dL Lactic Ac Sepsis Rflx Plasma Lactic Acid Fredy 1.7 (0.7-2.0) mmol/L Calcium (8.4-10.2) mg/dL Total Bilirubin (0.2-1.3) mg/dL AST (14-36) U/L ALT (4-34) U/L Alkaline Phosphatase (38-126) U/L Troponin I (0.000-0.034) ng/mL Total Protein (6.3-8.2) g/dL Albumin (3.5-5.0) g/dL Disposition <Brenda Mansfield - Last Filed: 09/25/24 16:21> Is patient prescribed a controlled substance at d/c from ED?: No Time of Disposition: 19:54 <Alvarez Du - Last Filed: 09/25/24 20:29> <Daniele Valenzuela - Last Filed: 09/25/24 22:09> Clinical Impression: BPPV (benign paroxysmal positional vertigo) Disposition: HOME SELF-CARE Condition: Good Instructions (If sedation given, give patient instructions): Dizziness (ED) Prescriptions: Meclizine [Antivert] 25 mg PO TID PRN #15 tab PRN Reason: dizziness Referrals: None,Stated [Primary Care Provider] - 1-2 days
--- NOTE | 2024-09-25 17:47 | CT ---
EXAMINATION TYPE: CT brain wo con DATE OF EXAM: 09/25/2024 5:12 PM COMPARISON: None. CLINICAL INDICATION: Female, 79 years old with history of Dizziness, dizziness TECHNIQUE: Brain: Axial CT images of the brain were obtained with coronal and sagittal reformats created and rev iewed. Contrast used: None. Oral contrast used: None. CT DLP: 1109.4 mGycm, Automated exposure control for dose reduction was used. FINDINGS: Brain: Extra-axial spaces: No abnormal extra-axial fluid collections. Ventricular system: Dilatation in proportion to cerebral atrophy. Cerebral parenchyma: Cerebral atrophy. No acute intraparenchymal hemorrhage or mass effect. The watkins -white junction is well differentiated. Scattered hypoattenuating areas are seen within the white mat ter. Cerebellum: Unremarkable. Mass effect: No evidence of midline shift. Intracranial vasculature: unremarkable Soft tissues: Normal. Calvarium/osseous structures: No depressed skull fracture. Paranasal sinuses and mastoid air cells: Mild scattered paranasal sinus disease. Visualized orbits: Bilateral aphakia IMPRESSION: 1. No acute intracranial process. 2. Nonspecific white matter changes, likely secondary to chronic small vessel ischemic disease. [facility], , 09/25/2024 5:44 PM
[2024-09-25 18:06] LABS: Basophils # (A) 0.02 10*3/uL (0.00-0.10); Basophils % (A) 0.4 %; HCT 45.6 % (37.2-46.3); HGB 15.8 g/dL (12.0-15.0); Lymphocytes # (A) 0.88 10*3/uL (0.90-5.00); Lymphocytes % (A) 15.7 %; MCH 31.3 pg (27.0-32.0); MCHC 34.6 g/dL (32.0-37.0); MCV 90.3 fL (80.0-97.0); Mean Platelet Volume 9.7 fL (9.5-12.2); Monocytes # (A) 0.23 10*3/uL (0.20-1.00); Monocytes % (A) 4.1 %; Neutrophils # (A) 4.45 10*3/uL (1.80-7.70); Neutrophils % (A) 79.3 %; Platelet Count 246 10*3/uL (140-440); RBC 5.05 10*6/uL (4.10-5.20); RDW 12.3 % (11.5-14.5); WBC 5.61 10*3/uL (4.50-10.00)
[2024-09-25 18:15] LABS: Prothrombin Time 10.7 sec (10.0-12.5)
[2024-09-25 18:17] LABS: ALT 23 U/L (4-34); AST 26 U/L (14-36); African American GFR (CKD) >90 (>60 ml/min/1.73 sqM); Albumin 4.6 g/dL (3.5-5.0); Alkaline Phosphatase 73 U/L (38-126); Anion Gap 10 mmol/L; Blood Urea Nitrogen 16 mg/dL (7-17); Calcium 10.6 mg/dL (8.4-10.2); Carbon Dioxide 23 mmol/L (22-30); Chloride 105 mmol/L (98-107); Glucose 131 mg/dL (74-99); Non-African American GFR(CKD) 86 (>60 ml/min/1.73 sqM); Potassium 3.9 mmol/L (3.5-5.1); Sodium 138 mmol/L (137-145); Total Bilirubin 0.8 mg/dL (0.2-1.3); Total Protein 7.5 g/dL (6.3-8.2)
[2024-09-25] MEDS: SODIUM CHLORIDE 0.9% 1,000 ML IV STA (20:28)
[2024-09-25] MEDS: MECLIZINE 12.5 MG TAB PO STA (20:30)
[2024-09-25] MEDS: METOCLOPRAMIDE 5 MG/ML 2 ML VIAL IVP STA (20:34)
[2024-09-25 23:38] VITALS: BP 181/92; PULSE 80; RESP 18; TEMP 97.7
== END 2024-09-25 23:41 | disposition home or self-care (01) ==
LOC: EC 15:46
DX: H81.10 Benign paroxysmal vertigo, unspecified ear (principal)
CPT/HCPCS: 36415; 93005; 80053; 83605; 84484; 85025; 85610; 70450; 99284; 96374; 96361; J2765